=== PATIENT | female | born 1940 | race Two or more races ===

== ENCOUNTER 2021-10-01 11:56 | Emergency (ER) | payer OTHER ==
[~2021-10-01] VITALS: Ht 157.5 cm; Wt 68.5 kg
[2021-10-01] MEDS ORDERED: MOVE FREE ULTR1 EAC1 PO (12:25)
[2021-10-01] MEDS ORDERED: FOLIC ACID1 MG PO (12:25)
[2021-10-01] MEDS ORDERED: GLYCOTROL CAPS1 EACH PO (12:25)
== END 2021-10-01 13:00 | disposition home or self-care (01) ==
LOC: ER 11:56
DX: M54.2 Cervicalgia (principal); M60.88 Other myositis, other site

== ENCOUNTER 2023-03-10 08:45 | Inpatient (IN) | payer OTHER ==
[~2023-03-10] VITALS: Ht 157.5 cm; Wt 60.3 kg
[~2023-03-10 08:45] MED LIST: FOLIC ACID1 MG PO; GLYCOTROL CAPS1 EACH PO; MOVE FREE ULTR1 EAC1 PO
[2023-03-10] MEDS ORDERED: VERAPA PO (10:47)
[2023-03-10] MEDS ORDERED: GLUMETZA500 MG PO (10:47)
[2023-03-10] MEDS ORDERED: SIMVAST PO (10:48)
[2023-03-10] MEDS ORDERED: LOSARTAN-HCTZ1 EACH PO (10:48)
[2023-03-12] MEDS ORDERED: BACLOFEN10 MG (10:15)
[2023-03-12] MEDS ORDERED: LORATADINE10 MG (10:16)
[2023-03-12] MEDS ORDERED: VERAPAMIL ER120 MG (10:16)
[2023-03-12] MEDS ORDERED: SERTRALINE HCL25 MG (10:16)
[2023-03-12] MEDS ORDERED: FLONASE16 GM (10:16)
[2023-03-12] MEDS ORDERED: SIMVASTATIN20 MG (10:16)
[2023-03-16] MEDS ORDERED: TRAM1TAB98 PO (12:58)
[2023-03-16] MEDS ORDERED: INTESTINEX680 M1 PO (12:58)
[2023-03-16] MEDS ORDERED: BENZONATATE100 MG PO (12:59)
[2023-03-16] MEDS ORDERED: PEPCID AC20 MG PO (13:00)
== END 2023-03-16 14:05 | disposition home or self-care (01) | DRG 331 ==
LOC: O/R 03-12 05:34 → SURH 03-12 05:34 → SURG 03-12 13:28 → SURH 03-12 15:35
PROVIDERS: ADMIT Surgery; ATTEND Surgery
PROC: 07BB4ZZ Excision of Mesenteric Lymphatic, Percutaneous Endoscopic Approach (ICD-10-PCS; 2023-03-12)
PROC: 4A12X4Z Monitoring of Cardiac Electrical Activity, External Approach (ICD-10-PCS; 2023-03-12)
PROC: 0DTF4ZZ Resection of Right Large Intestine, Percutaneous Endoscopic Approach (ICD-10-PCS; principal; 2023-03-12 16:45)
DX: D12.1 Benign neoplasm of appendix (principal); R59.0 Localized enlarged lymph nodes; I11.9 Hypertensive heart disease without heart failure; E11.9 Type 2 diabetes mellitus without complications